=== PATIENT | male | born 2000 | race Caucasian/White ===

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

== ENCOUNTER 2019-03-09 08:10 | Emergency (ER) | payer SELFPAY ==
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
[2019-03-09] MEDS: Diph,Pert(Acell),Tet Vac 0.5 ML SYR IM ONE (09:01)
== END 2019-03-09 09:16 | disposition home or self-care (01) ==
LOC: ER 08:10
DX: S60.412A Abrasion of right middle finger, initial encounter (principal); S60.410A Abrasion of right index finger, initial encounter; R11.0 Nausea; V58.5XXA Driver of pick-up truck or van injured in noncollision transport accident in traffic accident, initial encounter; Y92.410 Unspecified street and highway as the place of occurrence of the external cause
CPT/HCPCS: 90715; 96372; 99285